=== PATIENT | female | born 1950 ===

== ENCOUNTER → 2017-08-30 | Outpatient (CLI) | payer MEDICARE ==
[~2017-08-30] MED LIST: AMLO5TAB4 PO; CABE0.5T PO; CALC0.25 PO; CALC3.7S5 NAS; ESTRODIAL PATCH TD; FENO145T32 PO; FLUT9.9S NAS; HYDR-882 PO; LORA10TA3 PO; METF500T4 PO; MONT10TA6 PO; NEBI10TA3 PO; OMEP20CA9 PO; OXYGEN NAS; POTA10TA5 PO; PRED5TAB PO; THYR180T PO; TIOT18CA INH; TRIA0.2576 PO
== END | disposition home or self-care (01) ==
LOC: CFH 10:31
PROVIDERS: ATTEND Internal Medicine Cardiovascular Disease
DX: I08.2 Rheumatic disorders of both aortic and tricuspid valves (principal); L93.0 Discoid lupus erythematosus
CPT/HCPCS: 93306

== ENCOUNTER → 2017-09-19 | Outpatient (CLI) | payer MEDICARE | END | disposition home or self-care (01) | LOC: CARD 14:11 | PROVIDERS: ATTEND Internal Medicine Cardiovascular Disease | DX: J84.10 Pulmonary fibrosis, unspecified (principal) | CPT/HCPCS: 94010; 94726; 94729 ==

== ENCOUNTER → 2017-10-11 | Outpatient (CLI) | payer MEDICARE | END | disposition home or self-care (01) | LOC: CFH 14:02 | PROVIDERS: ATTEND Internal Medicine | DX: R09.02 Hypoxemia (principal) | CPT/HCPCS: 71250 ==